=== PATIENT | male | born 1980 | race Two or more races ===

== ENCOUNTER 2016-11-28 06:34 | Emergency (ER) | payer SELFPAY ==
[~2016-11-28] VITALS: Ht 167.6 cm; Wt 96.2 kg
[2016-11-28 07:28] LABS: Urine Bilirubin Negative (Negative); Urine Blood TRACE /uL (Negative); Urine Glucose TRACE mg/dL (Normal); Urine Ketone Negative (Negative); Urine RBC 6 /hpf (0 - 3); Urine Squamous Epithelial Cell FEW /hpf (<5); Urine Urobilinogen Normal (Negative); Urine pH 5.5 (5.0-8.0)
[2016-11-28 07:32] LABS: Urine Nitrite POSITIVE (Negative)
[2016-11-28 07:33] LABS: Urine Color Orange (Yellow)
[2016-11-28 08:50] VITALS: BP 128/95
== END 2016-11-28 09:25 | disposition home or self-care (01) ==
LOC: ER 06:41
DX: N39.0 Urinary tract infection, site not specified (principal)
CPT/HCPCS: 81001